=== PATIENT | male | born 1980 | race Caucasian/White ===

== ENCOUNTER → 2019-02-05 | Outpatient (CLI) | payer BC ==
[~2019-02-05] MED LIST: TIZA-128 PO
--- NOTE | 2019-02-05 18:32 | RADIOLOGY IMAGING REPORT ---
FACILITY: [facility] PATIENT NAME: Chet Chavis : 1980 MR: [id number] V: [id number] EXAM DATE: ORDERING PHYSICIAN: ADRIEN HOBBS TECHNOLOGIST: Location: [facility] [place] Patient: Chet Chavis : 1980 Visit/Account:[id number] Date of Sevice: 02/05/2019 SCROTAL ULTRASOUND INDICATION: Pain and swelling. Lump. COMPARISON: None available. FINDINGS: Right testicle measures 4.9 x 2.4 x 3.5 cm in cc, AP, and transverse dimensions respectively. There is normal arterial and venous blood flow. No evidence of hydrocele.. No varicocele identified. The right epididymal head measures 0.9 cm. Normal blood flow. No focal normality. Left testicle measures 4.0 x 2.7 x 3.5 cm in cc, AP, and transverse dimensions respectively. There is normal arterial and venous blood flow. Small left hydrocele. No varicocele identified. The left epididymal head measures 0.8 cm. The epididymal tail is increased blood flow and shows a pro minent appearance without focal abnormality. The remaining epididymis is unremarkable. The bilateral testicles appear homogenous in echogenicity. IMPRESSION: 1. Increased blood flow to the left epididymal tail with a prominent appearance suggesting epididymit is. 2. Both testes appear normal. 3. Small left hydrocele. I called report to ADRIEN HOBBS at 02/05/2019 6:20 PM. Report Dictated By: Alfredo Song at 02/05/2019 6:13 PM Report E-Signed By: Alfredo Song at 02/05/2019 6:29 PM WSN:[id number]
== END ==
LOC: US 16:42
PROVIDERS: ATTEND Nurse Practitioner Family
DX: N43.3 Hydrocele, unspecified (principal)
CPT/HCPCS: 76870